=== PATIENT | female | born 1995 | race Caucasian/White ===

== ENCOUNTER 2017-05-17 14:55 | Outpatient (CLI) | payer OTHER ==
[~2017-05-17 14:55] MED LIST: IOPAMIDOL-300 100 ML VIAL ONE
[2017-05-17] MEDS ORDERED: IOPAMIDOL-300 100 ML VIAL IVP ONE ×2 (15:24)
--- NOTE | 2017-05-18 12:07 | CT Report ---
CT BRAIN WITH AND WITHOUT CONTRAST: 05/18/2017 CLINICAL INDICATION: Syncope and collapse. TECHNIQUE: Axial CT images of the brain were obtained prior to and following 80 mL Isovue-300 intrav enously. In accordance with CT protocol optimization, one or more of the following dose reduction techniques w ere utilized for this exam: automated exposure control, adjustment of mA and/or KV based on patient size, or use of iterative reconstructive technique. FINDINGS: The ventricles and sulci are normal in size, shape, and configuration. The basilar cister ns are patent. There is no evidence of hemorrhage, mass effect, or midline shift. No abnormal enhan cement is appreciated following contrast administration. The visualized orbital contents and paranas al sinuses are unremarkable. IMPRESSION: NORMAL CT OF THE BRAIN WITH AND WITHOUT CONTRAST. JOB #: [id number] EXT JOB #:[id number]
== END 2017-05-17 14:56 | disposition home or self-care (01) ==
LOC: DI 14:55
PROVIDERS: ATTEND Nurse Practitioner Family
DX: R55 Syncope and collapse (principal)
CPT/HCPCS: 70470; Q9967

== ENCOUNTER 2018-11-17 12:57 | Emergency (ER) | payer OTHER ==
[2018-11-17] MEDS ORDERED: KETOROLAC 60 MG/2 ML VIAL IM STA (13:31)
[2018-11-17] MEDS ORDERED: PROMETHAZINE INJ 25 MG in SODIUM CHLORIDE 0.9% 50 ML IV STA (13:31)
[2018-11-17] MEDS ORDERED: PROMETHAZINE 25 MG/1 ML VIAL IM STA (13:39)
--- NOTE | 2018-11-17 13:39 | ED Physician Documentation ---
PD HPI HEADACHE - Stated complaint Stated Complaint: MIGRAINE/VOMITING - Chief complaint Chief Complaint: Heent - History obtained from History obtained from: Patient, Family - History of Present Illness Timing - onset: Today Timing - onset during: Other (headache shortly after waking up) Timing - duration: Hours (6) Timing - details: Gradual onset Pain level max: 8 Pain level now: 8 Location: Back Quality: Throbbing, Aching. No: Thunderclap Associated symptoms: Nausea, Vomiting. No: Fever, Stiff neck, Weakness, Numbness, Syncope Improved by: Rest, Dark room Worsened by: Light, Moving Similar symptoms before: Diagnosis (has chronic migraines) Recently seen: Not recently seen Review of Systems Constitutional: denies: Fever, Chills GI: denies: Nausea, Vomiting, Diarrhea Skin: denies: Rash Musculoskeletal: denies: Neck pain, Back pain Neurologic: denies: Focal weakness, Numbness, Head injury, LOC PD PAST MEDICAL HISTORY - Past Medical History Neuro: Migraines - Past Surgical History Past Surgical History: Yes HEENT: Myringotomy (tubes) - Present Medications Home Medications: Ambulatory Orders Medication Instructions Recorded Confirmed Bcp DAILY 08/19/13 04/06/14 Azithromycin [Zithromax] 250 mg PO DAILY #4 tablet 04/06/14 oxyCODONE [Roxicodone] 5 mg PO Q4-6H PRN #15 tablet 04/06/14 Promethazine [Phenergan] 25 mg PO Q6H PRN #10 tab 11/17/18 - Allergies Allergies/Adverse Reactions: Allergies Allergy/AdvReac Type Severity Reaction Status Date / Time No Known Drug Allergies Allergy Verified 11/17/18 13:04 - Social History Does the pt smoke?: No Smoking Status: Never smoker Does the pt drink ETOH?: No - Immunizations Immunizations are current?: Yes PD ED PE NORMAL - Vitals Vital signs reviewed: Yes - General General: Alert and oriented X 3, No acute distress - HEENT HEENT: Atraumatic, PERRL, EOMI, Ears normal, Moist mucous membranes, Pharynx benign - Neck Neck: Supple, no meningeal sign - Cardiac Cardiac: RRR - Respiratory Respiratory: No respiratory distress, Clear bilaterally - Abdomen Abdomen: Soft, Non tender, Non distended - Derm Derm: Warm and dry - Extremities Extremities: No edema - Neuro Neuro: Alert and oriented X 3, billet cutter 2-12 intact, No motor deficit, No sensory deficit, Normal speech Eye Opening: Spontaneous Motor: Obeys Commands Verbal: Oriented GCS Score: 15 - Psych Psych: Normal mood, Normal affect Results - Vitals Vitals: Vital Signs - 24 hr 11/17/18 11/17/18 13:01 14:23 Temperature 37.0 C Heart Rate 81 60 Respiratory 14 14 Rate Blood Pressure 122/62 107/61 O2 Saturation 100 100 Oxygen O2 Source Room air PD MEDICAL DECISION MAKING - ED course Complexity details: re-evaluated patient, considered differential, d/w patient ED course: Patient with her usual migraine headache. Given Toradol and Phenergan IM. Headache resolved. She would like to go home at this time. No evidence of subarachnoid hemorrhage, tumor, mass. Patient counseled regarding signs and symptoms for which I believe and urgent re-evaluation would be necessary. Patient with good understanding of and agreement to plan and is comfortable going home at this time This document was made in part using voice recognition software. While efforts are made to proofread this document, sound alike and grammatical errors may occur. Departure - Departure Disposition: 01 Home, Self Care Clinical Impression: Migraine Qualifiers: Migraine type: unspecified Status migrainosus presence: without status migrainosus Intractability: not intractable Qualified Code(s): G43.909 - Migraine, unspecified, not intractable, without status migrainosus Condition: Good Instructions: ED Headache Migraine Follow-Up: GASTON LU ARNP [Primary Care Provider] - As Needed Prescriptions: Promethazine [Phenergan] 25 mg PO Q6H PRN #10 tab PRN Reason: Nausea / Vomiting Comments: Go home and rest today. Return if you worsen. Follow-up with your doctor for further care. Discharge Date/Time: 11/17/18 14:34
[2018-11-17 14:24] VITALS: BP 107/61
== END 2018-11-17 14:34 | disposition home or self-care (01) ==
LOC: ED 12:57
DX: G43.909 Migraine, unspecified, not intractable, without status migrainosus (principal)
CPT/HCPCS: 96372; 99283

== ENCOUNTER 2019-01-21 07:16 | Outpatient (CLI) | payer OTHER ==
--- NOTE | 2019-01-21 09:17 | Ultrasound Report ---
Reason: NAUSEA W/VOMITING Procedure Date: 01/21/2019 Accession Number: [id number] / [id number] Procedure: US - Abdomen Complete CPT Code: FULL RESULT: EXAM: ABDOMEN ULTRASOUND EXAM DATE: 01/21/2019 07:31 AM. CLINICAL HISTORY: Nausea and vomiting for many weeks. COMPARISON: None. TECHNIQUE: Real-time scanning was performed with static images obtained. FINDINGS: Liver: Mildly coarsened echotexture. Liver measures at least 16.4 cm. Main portal vein flow: Hepatopetal. Gallbladder: Normal. No stones, wall thickening, or sonographic Blackmon's sign. Biliary System: Common bile duct measures 7 mm. 6 mm represents the upper limits of normal for the CBD at the alec hepatis in this age group. Pancreas: Visualized portion is unremarkable. Kidneys: Right: 11.3 cm longitudinally. Normal. No contour-deforming mass, stones, or hydronephrosis. Left: 11.4 cm longitudinally. Normal. No contour-deforming mass, stones, or hydronephrosis. Spleen: 9.9 cm. Normal in size and echotexture. Aorta and Inferior Vena Cava: Unremarkable. Other: None. IMPRESSION: Greater than expected caliber of the common bile duct without evidence of cholecystitis. Gallbladder is not meaningfully distended. There is no cholelithiasis. RADIA
--- NOTE | 2019-01-21 09:24 | Ultrasound Report ---
Reason: NAUSEA W/VOMITING Procedure Date: 01/21/2019 Accession Number: [id number] / [id number] Procedure: US - Pelvic w/Transvaginal CPT Code: FULL RESULT: EXAM: PELVIC ULTRASOUND EXAM DATE: 01/21/2019 08:30 AM. CLINICAL HISTORY: Abnormal vaginal bleeding with control pills. COMPARISON: None. TECHNIQUE: Realtime transabdominal pelvic scan performed to identify the uterus and adnexa and as an overview of other pelvic structures, followed by transvaginal scan to provide greater detail of the uterus and adnexa, with static image documentation. FINDINGS: Uterus: 9.2 x 4.1 x 5.7 cm, volume 113 cc. Anteverted position. Normal overall size and echotexture. Masses: None. Endometrium: 2 mm. Normal. Cervix: Unremarkable. Right Ovary: 3.2 x 2.4 x 3.6 cm, volume 14 cc. Normal echotexture and blood flow. Left Ovary: 3.2 x 2.2 x 3.2 cm, volume 11.5 cc. Normal echotexture and blood flow. Free Fluid: A small amount of fluid is seen within the pelvic cul-de-sac, possibly within physiologic limits. Other: None. IMPRESSION: Small amount of free fluid. Sonographically the endometrium is within normal limits. RADIA
== END 2019-01-21 07:17 | disposition home or self-care (01) ==
LOC: DI 07:16
PROVIDERS: ATTEND Nurse Practitioner Family
DX: R11.2 Nausea with vomiting, unspecified (principal)
CPT/HCPCS: 76700; 76830; 76856

== ENCOUNTER 2019-07-28 19:31 | Emergency (ER) | payer OTHER ==
[2019-07-28 19:40] VITALS: BP 107/62
--- NOTE | 2019-07-28 19:50 | ED Physician Documentation ---
PD HPI LOWER EXT INJURY - Stated complaint Stated Complaint: GLF - LT ANKLE INJURY - Chief complaint Chief Complaint: Ext Problem - History obtained from History obtained from: Patient (The patient is a very pleasant 24-year-old female who injured her left ankle last night patient reports that she has been drinking alcohol and twisted her left ankle she reports she is unable to bear weight she denies hitting her head or any loss of consciousness unit denies being anticoagulated she denies any history of left lower extremity surgery.) Review of Systems Constitutional: reports: Reviewed and negative Eyes: reports: Reviewed and negative Ears: reports: Reviewed and negative Nose: reports: Reviewed and negative Throat: reports: Reviewed and negative Cardiac: reports: Reviewed and negative Respiratory: reports: Reviewed and negative GI: reports: Reviewed and negative : reports: Reviewed and negative Skin: reports: Reviewed and negative Musculoskeletal: reports: Extremity pain, Joint pain Neurologic: reports: Reviewed and negative Psychiatric: reports: Reviewed and negative Endocrine: reports: Reviewed and negative Immunocompromised: reports: Reviewed and negative PD PAST MEDICAL HISTORY - Past Medical History Past Medical History: Yes Neuro: Migraines HEENT: Other Other Past Medical History: cx ear problems, has mastoidectomy - Past Surgical History Past Surgical History: Yes HEENT: Myringotomy (tubes) - Present Medications Home Medications: Ambulatory Orders Medication Instructions Recorded Confirmed Citalopram [CeleXA] 10 mg PO DAILY 07/28/19 07/28/19 - Allergies Allergies/Adverse Reactions: Allergies Allergy/AdvReac Type Severity Reaction Status Date / Time No Known Drug Allergies Allergy Verified 07/28/19 19:38 - Social History Does the pt smoke?: No Smoking Status: Never smoker Does the pt drink ETOH?: Yes Does the pt have substance abuse?: No - Immunizations Immunizations are current?: No Immunizations: Other immun not current - POLST Patient has POLST: No PD ED PE NORMAL - Vitals Vital signs reviewed: Yes - General General: Alert and oriented X 3, No acute distress - HEENT HEENT: PERRL - Neck Neck: Supple, no meningeal sign - Cardiac Cardiac: RRR, No murmur - Respiratory Respiratory: Clear bilaterally - Abdomen Abdomen: Normal bowel sounds, Soft, Non tender, Non distended - Derm Derm: Warm and dry - Extremities Extremities: No deformity, Other (There is tenderness to the left lateral malleolus there is no gross deformity she has palpable DP and PT pulses there is no tenderness over the proximal fibular head negative calf squeeze compartments are soft sensations intact to light touch no instability on anterior posterior drawer. There is tenderness over the lateral malleolus.) - Neuro Neuro: Alert and oriented X 3 - Psych Psych: Normal mood, Normal affect Results - Vitals Vitals: Vital Signs - 24 hr 07/28/19 19:35 Temperature 36.5 C Heart Rate 72 Respiratory 18 Rate Blood Pressure 107/62 O2 Saturation 100 Oxygen O2 Source Room air Departure - Departure Disposition: Home, Self Care Clinical Impression: Left ankle sprain Condition: Good Instructions: ED Sprain Ankle W X Ray Follow-Up: GASTON LU ARNP [Primary Care Provider] - Tomorrow
--- NOTE | 2019-07-28 20:33 | XRAY Report ---
Reason: left ankle injury Procedure Date: 07/28/2019 Accession Number: [id number] / [id number] Procedure: XR - Ankle 3 View LT CPT Code: Final Report FULL RESULT: EXAM: LEFT ANKLE RADIOGRAPHY EXAM DATE: 07/28/2019 08:01 PM. CLINICAL HISTORY: Left ankle injury. COMPARISON: None. TECHNIQUE: 3 views. FINDINGS: Bones: Normal. No fractures or bone lesions. Joints: Normal. No effusion. No subluxations. The ankle mortise is normally aligned. Soft Tissues: Mild soft tissue swelling over the lateral malleolus. IMPRESSION: Normal ankle radiography. RADIA
[2019-07-28] MEDS ORDERED: HYDROcod/ACETAM 5/325 MG TABLET PO STA (21:09)
== END 2019-07-28 21:15 | disposition home or self-care (01) ==
LOC: ED 19:31
DX: S93.402A Sprain of unspecified ligament of left ankle, initial encounter (principal); W10.9XXA Fall (on) (from) unspecified stairs and steps, initial encounter
CPT/HCPCS: 73610; 99283; 99284; A9270

== ENCOUNTER 2022-10-05 07:00 | Outpatient (CLI) | payer OTHER, MEDICAID ==
--- NOTE | 2022-10-06 11:32 | XRAY Report ---
PROCEDURE: Hand 2 View RT INDICATIONS: RIGHT FINGER PAIN TECHNIQUE: 2 views of the hand(s) acquired. COMPARISON: None. FINDINGS: Bones: No fractures or dislocations. No suspicious bony lesions. Soft tissues: No suspicious soft tissue calcifications or masses. IMPRESSION: No visualized acute fracture or dislocation. However, occult injury cannot be excluded. Recommend chang rt interval imaging follow-up in 7-10 days as clinically indicated for additional evaluation. Reviewed by: Lili Wilkerson MD on 10/06/2022 11:31 AM PDT Approved by: Lili Wilkerson MD on 10/06/2022 11:31 AM PDT Station ID: [id number]
== END 2022-10-05 23:59 | disposition home or self-care (01) ==
LOC: DI.S 07:00
PROVIDERS: ATTEND Internal Medicine
DX: M79.644 Pain in right finger(s) (principal)

== ENCOUNTER 2023-05-13 18:28 | Emergency (ER) | payer MEDICAID, OTHER ==
[2023-05-13 18:44] VITALS: BP 145/76; O2SAT 98
[2023-05-13] MEDS ORDERED: oxyCODONE 5 MG TABLET PO STA (19:08)
[2023-05-13] MEDS ORDERED: IBUPROFEN 600 MG TABLET PO STA (19:08)
[2023-05-13] MEDS ORDERED: BACITRACIN ZINC OINT 1 PACKET TOP STA (19:08)
[2023-05-13] MEDS ORDERED: oxyCODONE/ACET 5/325 Prepack 4 PO STA (20:20)
--- NOTE | 2023-05-13 20:20 | ED Physician Documentation ---
History of Present Illness - Stated complaint Stated Complaint: LT LEG PX - Chief complaint Chief Complaint: Burn - History obtained from History obtained from: Patient - History of Present Illness Timing: Today Pain level max: 8 Pain level now: 8 - Additonal information Additional information: 28-year-old female presents to the emergency department after dropping a pot of boiling water onto her left foot. There is blistering of the skin. Worse with movement, nothing makes it better. No fevers. No chills. Tetanus up-to-date. No other injuries. Review of Systems Constitutional: denies: Fever, Chills GI: denies: Vomiting, Diarrhea : denies: Now EGA PD PAST MEDICAL HISTORY - Past Medical History Past Medical History: Yes Neuro: Migraines HEENT: Other - Past Surgical History Past Surgical History: Yes HEENT: Myringotomy (tubes) - Present Medications Home Medications: Ambulatory Orders Medication Instructions Recorded Confirmed Citalopram [CeleXA] 10 mg PO DAILY 07/28/19 07/28/19 Bacitracin Zinc Oint 1 applic TOP BID #1 each 05/13/23 Ibuprofen [Motrin] 800 mg PO Q8H PRN #30 tablet 05/13/23 Oxycodone HCl/Acetaminophen 1 - 2 each PO Q6H PRN #14 tablet 05/13/23 [Percocet 5-325 mg Tablet] MDD 6 tabs - Allergies Allergies/Adverse Reactions: Allergies Allergy/AdvReac Type Severity Reaction Status Date / Time No Known Drug Allergies Allergy Verified 07/28/19 19:38 - Social History Does the pt smoke?: No Smoking Status: Never smoker Does the pt drink ETOH?: Yes Does the pt have substance abuse?: No - Immunizations Immunizations are current?: No Immunizations: Other immun not current - POLST Patient has POLST: No PD ED PE NORMAL - Vitals Vital signs reviewed: Yes - General General: Alert and oriented X 3, No acute distress - HEENT HEENT: Moist mucous membranes - Neck Neck: Supple, no meningeal sign - Cardiac Cardiac: RRR - Respiratory Respiratory: No respiratory distress, Clear bilaterally - Abdomen Abdomen: Soft, Non tender, Non distended - Derm Derm: Warm and dry - Neuro Neuro: Alert and oriented X 3 - Free text exam Free text exam: There is a burn over the dorsum of the foot. There is slight blistering at the proximal aspect of the foot. Not circumferential. The sole of the foot is normal. No circumferential boo around the toes. There is erythema to the dorsum of the foot. Neurovascular intact. Otherwise normal lower extremity exam of the left leg Results - Vitals Vitals: Vital Signs - 24 hr 05/13/23 18:30 Temperature 37 C Heart Rate 138 H Respiratory 20 Rate Blood Pressure 145/76 H O2 Saturation 98 Oxygen O2 Source Room air PD Medical Decision Making - ED course Complexity details: considered differential, d/w patient ED course: 28-year-old female with a hot water scald to the dorsum of the left foot. Wound was bandaged, bacitracin applied. No circumferential boo. Pain well controlled. Will place on pain medication and bacitracin for home. We will have her follow-up with her PCP for further care. Patient counseled regarding signs and symptoms for which I believe and urgent re-evaluation would be necessary. Patient with good understanding of and agreement to plan and is comfortable going home at this time This document was made in part using voice recognition software. While efforts are made to proofread this document, sound alike and grammatical errors may occur. Departure - Departure Disposition: Home, Self Care Clinical Impression: Burn of foot Qualifiers: Encounter type: initial encounter Laterality: left Burn degree: partial thickness (2nd degree) Qualified Code(s): T25.222A - Burn of second degree of left foot, initial encounter Condition: Good Instructions: ED Burn Scald Follow-Up: BERNARDO LINN [Primary Care Provider] - Within 1 week Prescriptions: Bacitracin Zinc Oint 1 applic TOP BID #1 each Ibuprofen [Motrin] 800 mg PO Q8H PRN #30 tablet PRN Reason: PAIN &/OR FEVER Oxycodone HCl/Acetaminophen [Percocet 5-325 mg Tablet] 1 - 2 each PO Q6H PRN #14 tablet MDD 6 tabs PRN Reason: pain Comments: Your prescriptions were sent to [facility] in [place]. Please follow-up with your doctor for further care. You should have a wound check next week. Please keep the wound clean. You can use the bacitracin as prescribed. Please return if you worsen Forms: PCP List Discharge Date/Time: 05/13/23 20:32
== END 2023-05-13 20:32 | disposition home or self-care (01) ==
LOC: ED 18:28 → SUPCPDRO 18:28 → ED 20:32
DX: T25.222A Burn of second degree of left foot, initial encounter (principal); X12.XXXA Contact with other hot fluids, initial encounter
CPT/HCPCS: 16020; 99283; A9270

== ENCOUNTER 2023-08-14 17:27 | Emergency (ER) | payer MEDICAID ==
[2023-08-14 17:43] VITALS: BP 126/78; O2SAT 99
--- NOTE | 2023-08-14 17:46 | ED Physician Documentation ---
PD HPI HEENT - Stated complaint Stated Complaint: L EAR PX - Chief complaint Chief Complaint: Heent - History obtained from History obtained from: Patient - Additional information Additional information: 28-year-old woman has recurrent issues with sinuses, tonsils, and ear infections. Severe left ear pain starting earlier today and then within the last hour developed bloody purulent drainage from the left ear with throbbing and decreased hearing. PD PAST MEDICAL HISTORY - Past Medical History Past Medical History: Yes Neuro: Migraines HEENT: Other - Past Surgical History Past Surgical History: Yes HEENT: Myringotomy (tubes), Other - Present Medications Home Medications: Ambulatory Orders Medication Instructions Recorded Confirmed Citalopram [CeleXA] 10 mg PO DAILY 07/28/19 08/14/23 Amox/Clav 875/125 [Augmentin] 1 each PO Q12H #20 tablet 08/14/23 Dextroamphetamine/Amphetamine 25 mg PO DAILY 08/14/23 08/14/23 [Dextroamp-Amphetamine 5 mg Tab] HYDROcod/ACETAM 5/325 [Central 5/325] 1 - 2 tab PO Q6H PRN #15 tablet 08/14/23 Ofloxacin [Ofloxacin Otic drops] 5 drops OT BID #10 ml 08/14/23 Sumatriptan Succinate [Imitrex] 100 mg PO DAILY PRN 08/14/23 08/14/23 clonazePAM [Clonazepam] 0.5 mg PO DAILY PRN 08/14/23 08/14/23 - Allergies Allergies/Adverse Reactions: Allergies Allergy/AdvReac Type Severity Reaction Status Date / Time No Known Drug Allergies Allergy Verified 08/14/23 17:38 - Social History Does the pt smoke?: No Smoking Status: Never smoker Does the pt drink ETOH?: Yes Does the pt have substance abuse?: No - Immunizations Immunizations are current?: No Immunizations: Other immun not current - POLST Patient has POLST: No PD ED PE NORMAL - Vitals Vital signs reviewed: Yes - General General: Alert and oriented X 3, No acute distress - HEENT HEENT: Other (Severe left otitis media with perforation) - Neuro 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 Departure - Departure Disposition: 01 Home, Self Care Clinical Impression: Otitis media Qualifiers: Otitis media type: suppurative Chronicity: acute Laterality: left Recurrence: recurrent Spontaneous tympanic membrane rupture: with spontaneous rupture Qualified Code(s): H66.015 - Acute suppurative otitis media with spontaneous rupture of ear drum, recurrent, left ear Condition: Good Record reviewed to determine appropriate education?: Yes Instructions: ED Otitis Media Acute Adult Prescriptions: Amox/Clav 875/125 [Augmentin] 1 each PO Q12H #20 tablet HYDROcod/ACETAM 5/325 [Central 5/325] 1 - 2 tab PO Q6H PRN #15 tablet PRN Reason: Pain Ofloxacin [Ofloxacin Otic drops] 5 drops OT BID #10 ml Comments: I sent your prescriptions electronically to [facility] in [place]. As discussed you should follow-up with ENT given all the problems you are having, you can [id number] ENT for next available appointment. You can take ibuprofen when pain is not too bad, you can add the hydrocodone when it is bad. I am prescribing a short course of narcotic pain medication for you. These are potentially dangerous and addictive medications that should be used carefully. These medications may constipate you. Take an kogj-bir-nktqjlv stool softener (docusate) twice daily with plenty of water while taking these medications. If you go 24 hours without a bowel movement, take zdaj-kyg-iuegrme miralax, per package instructions. Do not drink or drive while taking these medications. If you received narcotic or sedating medications while in the emergency department, do not drive for 24 hours. Store this medication in a safe, secure place and out of reach of children. It is a violation of federal law to give or sell this medication to another person or to use in a manner other than prescribed. The ED will not refill narcotic prescriptions, including prescriptions lost or stolen. To dispose of unwanted medications: 1. [facility]'s Office provides a drop box for medication in pill form only (no liquids) 8:00 am to 4:30 p.m. Monday-Monday in the lobby of the [facility], [address] Empty pills into ziplock bag before disposal. Call [phone] for information. 2.[employer] is a free service available to all [facility] residents. Go to [email or web address] Note that many narcotic pain relievers also contain Tylenol/acetaminophen. Please ensure that your total dose of acetaminophen from all sources does not exceed 3 g (3000 mg) per day. Forms: PCP List
== END 2023-08-14 18:07 | disposition home or self-care (01) ==
LOC: ED 17:27
DX: H66.015 Acute suppurative otitis media with spontaneous rupture of ear drum, recurrent, left ear (principal)
CPT/HCPCS: 99283

== ENCOUNTER 2023-12-06 10:10 | Emergency (ER) | payer MEDICAID ==
[2023-12-06 11:57] LABS: B. PARAPERTUSSIS- RESP PCR PAN NOT DETECTED; B. PERTUSSIS- RESP PCR PANEL NOT DETECTED; C. PNEUMONIAE- RESP PCR PANEL NOT DETECTED; CORONAVIRUS 229E-RESP PCR NOT DETECTED; CORONAVIRUS HKU1-RESP PCR NOT DETECTED; CORONAVIRUS NL63-RESP PCR NOT DETECTED; CORONAVIRUS OC43-RESP PCR NOT DETECTED; HUMAN METAPNEUMOVIRUS DETECTED; INFLUENZA A- RESP PCR PANEL NOT DETECTED; INFLUENZA B - RESP PCR PANEL NOT DETECTED; M. PNEUMONIAE- RESP PCR PANEL NOT DETECTED; PARAINFLUENZA VIRUS 1 NOT DETECTED; PARAINFLUENZA VIRUS 2 NOT DETECTED; PARAINFLUENZA VIRUS 3 NOT DETECTED; PARAINFLUENZA VIRUS 4 NOT DETECTED; RHINOVIRUS/ENTEROVIRUS NOT DETECTED; RSV- RESP PCR PANEL NOT DETECTED; SARS-CoV-2 -RESP PCR PANEL NOT DETECTED
--- NOTE | 2023-12-06 12:08 | ED Physician Documentation ---
PD HPI URI - Stated complaint Stated Complaint: SOA,COUGH, ABD PX - Chief complaint Chief Complaint: Resp - Additional information Additional information: 28-year-old female no pertinent past medical history presents emergency department for 4 to 5 days of feeling generalized malaise and unwell. Patient says that she has been her friend who also had similar symptoms. Patient says that she has been experiencing cough, headache, fevers and chills with nausea and vomiting. PD PAST MEDICAL HISTORY - Past Medical History Neuro: Migraines HEENT: Other - Past Surgical History Past Surgical History: Yes HEENT: Myringotomy (tubes), Other - Present Medications Home Medications: Ambulatory Orders Medication Instructions Recorded Confirmed Citalopram [CeleXA] 10 mg PO DAILY 07/28/19 08/14/23 Amox/Clav 875/125 [Augmentin] 1 each PO Q12H #20 tablet 08/14/23 Dextroamphetamine/Amphetamine 25 mg PO DAILY 08/14/23 08/14/23 [Dextroamp-Amphetamine 5 mg Tab] HYDROcod/ACETAM 5/325 [[place] 5/325] 1 - 2 tab PO Q6H PRN #15 tablet 08/14/23 Ofloxacin [Ofloxacin Otic drops] 5 drops OT BID #10 ml 08/14/23 Sumatriptan Succinate [Imitrex] 100 mg PO DAILY PRN 08/14/23 08/14/23 clonazePAM [Clonazepam] 0.5 mg PO DAILY PRN 08/14/23 08/14/23 - Allergies Allergies/Adverse Reactions: Allergies Allergy/AdvReac Type Severity Reaction Status Date / Time No Known Drug Allergies Allergy Verified 12/06/23 10:54 - Social History Does the pt smoke?: No Smoking Status: Never smoker Does the pt drink ETOH?: Yes Does the pt have substance abuse?: No - Immunizations Immunizations are current?: No Immunizations: Other immun not current - POLST Patient has POLST: No PD ED PE NORMAL - Vitals Vital signs reviewed: Yes - General General: Alert and oriented X 3, No acute distress, Well developed/nourished - HEENT HEENT: Atraumatic - Neck Neck: Supple, no meningeal sign - Cardiac Cardiac: RRR - Respiratory Respiratory: No respiratory distress, Clear bilaterally - Abdomen Abdomen: Normal bowel sounds, Non tender - Derm Derm: Normal color, Warm and dry, No rash - Extremities Extremities: No edema, No calf tenderness / cord Results - Vitals Vitals: Vital Signs - 24 hr 12/06/23 12/06/23 10:52 12:25 Temperature 36.8 C Heart Rate 99 97 Respiratory 18 18 Rate Blood Pressure 112/68 137/76 H O2 Saturation 97 100 Oxygen O2 Source Room air - Labs Labs: Laboratory Tests 12/06/23 10:57 Nasal Adenovirus (PCR) NOT DETECTED Nasal B. parapertussis DNA (PCR) NOT DETECTED Nasal Coronavir 229E PCR NOT DETECTED Nasal Coronavir HKU1 PCR NOT DETECTED Nasal Coronavir NL63 PCR NOT DETECTED Nasal Coronavir OC43 PCR NOT DETECTED Nasal Enterovir/Rhinovir PCR NOT DETECTED Nasal Influenza B PCR NOT DETECTED Nasal Influenza A PCR NOT DETECTED Nasal Parainfluen 1 PCR NOT DETECTED Nasal Parainfluen 2 PCR NOT DETECTED Nasal Parainfluen 3 PCR NOT DETECTED Nasal Parainfluen 4 PCR NOT DETECTED Nasal RSV (PCR) NOT DETECTED Nasal B.pertussis DNA PCR NOT DETECTED Nasal C.pneumoniae (PCR) NOT DETECTED Stephan Human Metapneumo PCR DETECTED A Nasal M.pneumoniae (PCR) NOT DETECTED Nasal SARS-CoV-2 (PCR) NOT DETECTED PD Medical Decision Making - ED course ED course: 28-year-old female presents emergency department for upper respiratory infection symptoms. Respiratory swab was complete and patient tested positive for human metapneumovirus. Patient was very reassured lungs are clear she was concerned about possible pneumonia but given that she is not coughing anything up she has been afebrile I do not believe that she is experiencing pneumonia. Patient is told to report back to the ER if fevers linger for longer than 5 days she is told to follow-up with her primary care provider ER return precautions given all questions answered patient safe for discharge. Departure - Departure Disposition: 01 Home, Self Care Clinical Impression: Infection due to human metapneumovirus (hMPV) Instructions: ED Viral Syndrome Comments: Thank you for trusting us with your care. We have swabbed you and it appears that you have tested positive for human metapneumovirus. As we discussed at this point time is just time going to take to get this virus out of your system make sure that you are eating a healthy well-balanced diet and plenty of fluids getting plenty of rest. Please come back to the ER if you experiencing fevers over 101 F for longer than 5 days starting to get any worse instead of better over the next couple days or any other concerning emergent symptoms. Follow-up with your primary care provider as needed. Wishing a speedy recovery. Forms: PCP List Discharge Date/Time: 12/06/23 12:25
[2023-12-06 12:33] VITALS: BP 137/76; O2SAT 100
== END 2023-12-06 12:25 | disposition home or self-care (01) ==
LOC: ED 10:10
DX: R50.9 Fever, unspecified (principal); B97.81 Human metapneumovirus as the cause of diseases classified elsewhere; Z79.899 Other long term (current) drug therapy
CPT/HCPCS: 87633; 99283

== ENCOUNTER 2023-12-10 05:48 | Outpatient (CLI) | payer MEDICAID | END 2023-12-10 23:59 | disposition critical access hospital (66) | LOC: EMS 05:48 | DX: R11.2 Nausea with vomiting, unspecified (principal); R19.7 Diarrhea, unspecified; R10.9 Unspecified abdominal pain | CPT/HCPCS: A0425; A0429; A0999 ==

== ENCOUNTER 2023-12-10 06:10 | Emergency (ER) | payer MEDICAID ==
[2023-12-10] MEDS: SODIUM CHLORIDE 0.9% 1,000 ML IV STA (06:31)
[2023-12-10 06:38] LABS: BASOPHILS % (AUTO) 0.2 %; EOSINOPHILS % (AUTO) 0.3 %; HCT - HEMATOCRIT 47.9 % (37.0-47.0); HGB - HEMOGLOBIN 16.2 g/dL (12.0-16.0); LYMPHOCYTES # (AUTO) 0.3 10^3/uL (1.5-3.5); LYMPHOCYTES % (AUTO) 2.8 %; MEAN CORPUSCULAR HEMOGLOBIN 29.5 pg (27.0-31.0); MEAN CORPUSCULAR HGB CONC 33.8 g/dL (32.0-36.0); MEAN CORPUSCULAR VOLUME 87.2 fL (81.0-99.0); MEAN PLATELET VOLUME 10.1 fL (7.9-10.8); MONOCYTES # (AUTO) 0.3 10^3/uL (0.0-1.0); MONOCYTES % (AUTO) 3.3 %; NEUTROPHILS # (AUTO) 9.3 10^3/uL (1.5-6.6); NEUTROPHILS % (AUTO) 93.1 %; PLT - PLATELET COUNT 281 10^3/uL (130-450); RED BLOOD COUNT 5.49 10^6/uL (4.20-5.40); RED CELL DISTRIBUTION WIDTH 12.7 % (12.0-15.0)
[2023-12-10 06:45] LABS: BILIRUBIN,URINE SMALL (NEGATIVE); GLUCOSE, URINE (UA) NEGATIVE (NEGATIVE); KETONES,URINE (UA) >=80 mg/dL (NEGATIVE); LEUKOCYTE ESTERASE, URINE SMALL (NEGATIVE); NITRITE,URINE NEGATIVE (NEGATIVE); OCCULT BLOOD,URINE NEGATIVE (NEGATIVE); PROTEIN,URINE TRACE mg/dL (NEGATIVE); UROBILINOGEN,URINE 0.2 (NORMAL) E.U./dL (NORMAL)
--- NOTE | 2023-12-10 06:46 | ED Physician Documentation ---
PD HPI NVD - Stated complaint Stated Complaint: N/V/D - Chief complaint Chief Complaint: Abd Pain - History obtained from History obtained from: Patient - Additonal information Additional information: Patient is a 28-year-old female presenting for evaluation of nausea, vomiting and diarrhea starting around 11 PM. Patient states that she ate a [place] and believes that she may have food poisoning. She has had numerous episodes of emesis and diarrhea. Denies blood in stools or emesis. Reports that her fianc at home is also starting to get sick now. Patient came by EMS but was not given any medications prior to arrival. Denies fever, chest pain, dysuria. Denies alcohol use. Does admit to cannabis use.No history of abdominal surgeries. Patient was seen here 4 days ago with URI symptoms and tested positive for human metapneumovirus.She reports still having a little bit of a cough but those symptoms have gotten better. Review of Systems Constitutional: denies: Fever Cardiac: denies: Chest pain / pressure Respiratory: reports: Cough. denies: Dyspnea GI: reports: Abdominal Pain, Nausea, Vomiting, Diarrhea : denies: Dysuria PD PAST MEDICAL HISTORY - Past Medical History Neuro: Migraines HEENT: Other Psych: Anxiety, Panic attacks - Past Surgical History Past Surgical History: Yes HEENT: Myringotomy (tubes), Other - Present Medications Home Medications: Ambulatory Orders Medication Instructions Recorded Confirmed Citalopram [CeleXA] 10 mg PO DAILY 07/28/19 12/10/23 Amox/Clav 875/125 [Augmentin] 1 each PO Q12H #20 tablet 08/14/23 12/10/23 Dextroamphetamine/Amphetamine 25 mg PO DAILY 08/14/23 12/10/23 [Dextroamp-Amphetamine 5 mg Tab] HYDROcod/ACETAM 5/325 [[place] 5/325] 1 - 2 tab PO Q6H PRN #15 tablet 08/14/23 12/10/23 Ofloxacin [Ofloxacin Otic drops] 5 drops OT BID #10 ml 08/14/23 12/10/23 Sumatriptan Succinate [Imitrex] 100 mg PO DAILY PRN 08/14/23 12/10/23 clonazePAM [Clonazepam] 0.5 mg PO DAILY PRN 08/14/23 12/10/23 Ondansetron Odt [Zofran] 4 mg TL Q6H PRN #10 tablet 12/10/23 - Allergies Allergies/Adverse Reactions: Allergies Allergy/AdvReac Type Severity Reaction Status Date / Time No Known Drug Allergies Allergy Verified 12/10/23 06:16 - Social History Does the pt smoke?: No Smoking Status: Never smoker Does the pt drink ETOH?: Yes Does the pt have substance abuse?: No - Immunizations Immunizations are current?: No Immunizations: Other immun not current - POLST Patient has POLST: No PD ED PE NORMAL - General General: Alert and oriented X 3, No acute distress, Well developed/nourished - HEENT HEENT: Atraumatic - Neck Neck: Supple, no meningeal sign - Cardiac Cardiac: RRR, Strong equal pulses - Respiratory Respiratory: No respiratory distress, Clear bilaterally - Abdomen Abdomen: Normal bowel sounds, Soft, Non distended, Other (Mild epigastric tenderness) - Derm Derm: Warm and dry - Neuro Neuro: Normal speech Results - Vitals Vitals: Vital Signs - 24 hr 12/10/23 06:17 Temperature 36.0 C L Heart Rate 77 Respiratory 18 Rate Blood Pressure 109/79 O2 Saturation 97 Oxygen O2 Source Room air - Labs Labs: Laboratory Tests 12/10/23 12/10/23 06:22 06:28 WBC 10.0 RBC 5.49 H Hgb 16.2 H Hct 47.9 H MCV 87.2 MCH 29.5 MCHC 33.8 RDW 12.7 Plt Count 281 MPV 10.1 Neut # (Auto) 9.3 H Lymph # (Auto) 0.3 L Gooding # (Auto) 0.3 Eos # (Auto) 0.0 Baso # (Auto) 0.0 Absolute Nucleated RBC 0.00 Nucleated RBC % 0.0 Urine Color YELLOW Urine Clarity CLEAR Urine pH 7.0 Ur Specific [place] 1.020 Urine Protein TRACE Urine Glucose (UA) NEGATIVE Urine Ketones >=80 H Urine Occult Blood NEGATIVE Urine Nitrite NEGATIVE Urine Bilirubin SMALL H Urine Urobilinogen 0.2 (NORMAL) Ur Leukocyte Esterase SMALL H Urine RBC 0-5 Urine WBC 0-3 Ur Squamous Epith Cells MANY Squamous H Urine Bacteria Few Urine Mucus Moderate Strands Ur Microscopic Review INDICATED Urine Culture Comments NOT INDICATED Urine HCG, Qual NEGATIVE PD Medical Decision Making - ED course Complexity details: reviewed results ED course: Patient is a 28-year-old female presenting for evaluation of nausea, vomiting and diarrhea starting last night after eating takeout [place] food. Vital signs are stable. Abdominal exam with mild epigastric tenderness. CBC, chemistry, urinalysis were obtained. Patient was given a liter of IV fluids and Zofran was ordered. Urine analysis is negative for . At time of shift change, labs are pending and patient is awaiting to receive Zofran. Patient signed out to Dr. Benito pending reevaluation after labs and medication. Departure - Departure Clinical Impression: Nausea vomiting and diarrhea Instructions: ED Diet Vomiting Diarrhea Prescriptions: Ondansetron Odt [Zofran] 4 mg TL Q6H PRN #10 tablet PRN Reason: Nausea / Vomiting Comments: A prescription for an antinausea medication called Zofran was sent to [facility] in [place]. I would recommend starting with a bland diet today and advancing as tolerated. If you develop any worsening symptoms then please consider reevaluation in the ER. Forms: PCP List
[2023-12-10 06:47] LABS: CLARITY,URINE CLEAR (CLEAR)
[2023-12-10 06:55] LABS: RBC,URINE 0-5 /HPF (0-5); SQUAMOUS EPITHELIAL CELL,UR MANY Squamous (<= Few); WBC,URINE 0-3 /HPF (0-5)
[2023-12-10 06:56] LABS: BACTERIA,URINE Few /HPF (None Seen); HCG UR QUAL NEGATIVE; MUCUS,URINE Moderate Strands
[2023-12-10] MEDS: ONDANSETRON 4 MG/2 ML VIAL IVP STA (06:57)
[2023-12-10 07:16] LABS: ALBUMIN 4.6 g/dL (3.2-5.5); ALBUMIN/GLOBULIN RATIO 1.5 (1.0-2.2); ALKALINE PHOSPHATASE 54 IU/L (42-121); ALT ALANINE AMINOTRANSFERASE 77 IU/L (10-60); AST ASPARTATE AMINOTRANSFERASE 31 IU/L (10-42); BUN - BLOOD UREA NITROGEN 14 mg/dL (6-20); CALCIUM 9.9 mg/dL (8.5-10.3); CARBON DIOXIDE - CO2 22 mmol/L (21-32); CHLORIDE 102 mmol/L (101-111); CREATININE 0.7 mg/dL (0.6-1.3); GFR - MDRD 101 (>89); GLUCOSE 162 mg/dL (74-104); POTASSIUM 3.7 mmol/L (3.5-4.5); SODIUM 138 mmol/L (135-145); TOTAL PROTEIN 7.7 g/dL (6.4-8.9)
[2023-12-10 07:32] LABS: LIPASE < 10 U/L (11-82)
--- NOTE | 2023-12-10 07:50 | ED Physician Documentation ---
ED Addendum - Addendum Addendum: 12/10/23 07:[address] Bañuelos at 7 AM shift change. Patient with clinical gastroenteritis. She was seen and examined at the bedside. She is feeling much better. She has passed a p.o. challenge. She is nontender on abdominal palpation. CBC, CMP, urinalysis and urine test were unremarkable save signs of hemoconcentration and dehydration as well as mild hyperglycemia. Disposition: Discharged home Condition: Stable and improved Diagnosis: 1. Gastroenteritis
[2023-12-10 07:58] VITALS: BP 110/69; O2SAT 99
== END 2023-12-10 07:57 | disposition home or self-care (01) ==
LOC: EDUNIT# → ED 06:10
DX: K52.9 Noninfective gastroenteritis and colitis, unspecified (principal); E86.0 Dehydration; R73.9 Hyperglycemia, unspecified; Z32.02 Encounter for pregnancy test, result negative
CPT/HCPCS: 36415; 80053; 81001; 81003; 81025; 83690; 85025; 87086; 96361; 96374; 99284

== ENCOUNTER 2024-01-27 14:27 | Outpatient (CLI) | payer OTHER, MEDICAID | END 2024-01-27 23:59 | disposition critical access hospital (66) | LOC: EMS 14:27 | DX: M54.2 Cervicalgia (principal); M25.512 Pain in left shoulder; M54.6 Pain in thoracic spine; V43.51XA Car driver injured in collision with sport utility vehicle in traffic accident, initial encounter; Y92.413 State road as the place of occurrence of the external cause | CPT/HCPCS: A0425; A0429 ==

== ENCOUNTER 2024-01-27 14:52 | Emergency (ER) | payer OTHER, MEDICAID ==
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
[2024-01-27] MEDS: HYDROcod/ACETAM 5/325 MG TABLET PO STA (15:24)
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
[2024-01-27] MEDS: KETOROLAC 60 MG/2 ML VIAL IM STA (16:46)
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
[2024-01-27] MEDS: HYDROmorphone 1 MG/ML CARPUJECT IM STA (17:21)
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
[2024-01-27] MEDS: oxyCODONE/ACET 5/325 Prepack 4 PO STA (17:46)
[2024-01-27 17:48] VITALS: BP 155/80; O2SAT 97
== END 2024-01-27 17:51 | disposition home or self-care (01) ==
LOC: ED 14:52
DX: S16.1XXA Strain of muscle, fascia and tendon at neck level, initial encounter (principal); S39.012A Strain of muscle, fascia and tendon of lower back, initial encounter; S40.012A Contusion of left shoulder, initial encounter; V49.49XA Driver injured in collision with other motor vehicles in traffic accident, initial encounter; Y93.89 Activity, other specified; Y92.410 Unspecified street and highway as the place of occurrence of the external cause
CPT/HCPCS: 72125; 72128; 73030; 96372; 99284; A9270; J1170

== ENCOUNTER 2024-01-31 14:56 | Emergency (ER) | payer MEDICAID, OTHER ==
[2024-01-31] MEDS: CYCLOBENZAPRINE 10 MG TABLET PO STA (15:50)
[2024-01-31] MEDS: LIDOCAINE PATCH 5% TOP STA (15:50)
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
--- NOTE | 2024-01-31 16:22 | XRAY Report ---
PROCEDURE: Lumbar Spine 2-3V INDICATIONS: lower back pain TECHNIQUE: 3 views of the lumbar spine were acquired. COMPARISON: None. FINDINGS: Surgical change: None. Bones: 5 [id number] vertebrae are present. There is normal bony alignment. No vertebral body co mpression fractures. No suspicious bony lesions. Soft tissues: Overlying bowel gas pattern is normal. No suspicious soft tissue calcifications. IMPRESSION: No visualized acute fracture or dislocation. However, occult injury cannot be excluded. Recommend chang rt interval imaging follow-up in 7-10 days as clinically indicated for additional evaluation. Reviewed by: Lili Wilkerson MD on 01/31/2024 4:21 PM PDT Approved by: Lili Wilkerson MD on 01/31/2024 4:21 PM PDT Station ID: [id number]
[2024-01-31] MEDS: KETOROLAC 15 MG/ML VIAL IM STA (17:05)
[2024-01-31 17:17] VITALS: BP 115/70; O2SAT 100
== END 2024-01-31 17:17 | disposition home or self-care (01) ==
LOC: ED 14:56
DX: S39.012A Strain of muscle, fascia and tendon of lower back, initial encounter (principal); V89.2XXA Person injured in unspecified motor-vehicle accident, traffic, initial encounter; Y93.89 Activity, other specified
CPT/HCPCS: 72100; 96372; 99283; 99284; A9270

== ENCOUNTER 2024-02-17 12:11 | Emergency (ER) | payer MEDICAID, OTHER ==
[2024-02-17 12:33] VITALS: BP 121/85; O2SAT 100
--- NOTE | 2024-02-17 13:00 | ED Physician Documentation ---
History of Present Illness - Stated complaint Stated Complaint: LT EAR PX, PRESSURE - Chief complaint Chief Complaint: Heent - History obtained from History obtained from: Patient - Additonal information Additional information: Patient is a 29-year-old female presenting to the emergency department with left ear pain and pressure patient has past medical history of tympanostomy tubes and has [address] in the right ear. She notes left ear fell out few months ago. She notes pressure to her left ear that started today but was having fevers to 101 at home. Her daughter recently tested positive for RSV within the last week. She assumed her symptoms were secondary to that however she continues to have left ear pain today. Patient denies any nausea or vomiting. She has taken Tylenol for her pain with no relief. No recent antibiotic use. Patient has been eating and drinking well with no other sick contacts other than her daughter. 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 HEENT: Other Psych: Anxiety, Panic attacks Musculoskeletal: None Derm: None - Past Surgical History Past Surgical History: Yes HEENT: Myringotomy (tubes), Other - Present Medications Home Medications: Ambulatory Orders Medication Instructions Recorded Confirmed Dextroamphetamine Sulfate 20 mg PO BID 01/27/24 01/31/24 Oxycodone HCl/Acetaminophen 1 - 2 each PO Q6H PRN #7 tablet 01/27/24 01/31/24 [Percocet 5-325 mg Tablet] Citalopram [CeleXA] 10 mg PO DAILY 01/31/24 01/31/24 Cyclobenzaprine [Flexeril] 10 mg PO TID PRN 6 Days #20 tablet 01/31/24 Naproxen 250 mg PO BID PRN #15 tablet 01/31/24 Amox/Clav 875/125 [Augmentin] 1 each PO Q12H #20 tablet 02/17/24 - Allergies Allergies/Adverse Reactions: Allergies Allergy/AdvReac Type Severity Reaction Status Date / Time No Known Drug Allergies Allergy Verified 02/17/24 12:28 - Social History Does the pt smoke?: No Smoking Status: Never smoker Does the pt drink ETOH?: Yes Does the pt have substance abuse?: No - Immunizations Immunizations are current?: No Immunizations: Other immun not current - POLST Patient has POLST: No PD ED PE NORMAL - Vitals Vital signs reviewed: Yes - General General: Alert and oriented X 3 - HEENT HEENT: Atraumatic, Other (Left tympanic membrane with erythema and bulging, TM intact. Right tympanic membrane has tympanostomy tube in place no discharge no significant erythema or tenderness on examination.) - Neck Neck: Supple, no meningeal sign - Cardiac Cardiac: RRR, No gallop, No rub - Respiratory Respiratory: No respiratory distress, Clear bilaterally - Abdomen Abdomen: Normal bowel sounds, Non tender - Derm Derm: Normal color, No rash - Neuro Neuro: Alert and oriented X 3 Results - Vitals Vitals: Vital Signs - 24 hr 02/17/24 12:24 Temperature 36.8 C Heart Rate 91 Respiratory 18 Rate Blood Pressure 121/85 H O2 Saturation 100 Oxygen O2 Source Room air PD Medical Decision Making - ED course Complexity details: reviewed old records ED course: Patient is a 29-year-old female presenting to the emergency department with left ear pain and fevers to 101 at home. Patient comes in with her daughter who is having similar symptoms. Patient has past medical history of tympanostomy tubes in place and history of recurrent surgeries to bilateral ears. She notes left ear pain is the one without the tympanostomy tube in place still. She notes no nausea vomiting no sore throat or cough. Her daughter was recently diagnosed with RSV about a week ago. Vitals on arrival are reassuring. Physical exam shows left tympanic membrane with bulging and erythema on examination. Right ear shows tympanostomy tube in place. No significant discharge or redness. No meningeal signs. Patient given pain medications here in emergency department for persistent pain and given antibiotics for acute otitis media of the left ear at home. Instructed patient to follow-up with her PCP in the outpatient setting in 1 week to ensure resolution of symptoms given her significant history of recurrent ear infections. Patient instructed to return with any neck pain stiffness photophobia headaches. She was instructed to take antibiotics as p rescribed. Departure - Departure Disposition: 01 Home, Self Care Clinical Impression: Left acute otitis media, Otitis media Condition: Good Instructions: ED Otitis Media Acute Adult Prescriptions: Amox/Clav 875/125 [Augmentin] 1 each PO Q12H #20 tablet Comments: Call your doctor to arrange a follow-up appointment, make the next available appointment. In the interim, return anytime if worse or if new symptoms develop. Forms: PCP List
[2024-02-17] MEDS: AMOX/CLAV 875 MG/125 MG TABLET PO STA (13:11)
[2024-02-17] MEDS: HYDROcod/ACETAM 5/325 MG TABLET PO STA (13:11)
== END 2024-02-17 13:25 | disposition home or self-care (01) ==
LOC: ED 12:11
DX: H66.92 Otitis media, unspecified, left ear (principal)
CPT/HCPCS: 99283; A9270